=== PATIENT | male | born 1985 | race African-American/Black ===

== ENCOUNTER 2019-08-23 12:43 | Emergency (ER) | payer OTHER ==
[2019-08-24 16:40] LABS: SARS-CoV-2 MS2 Positive; SARS-CoV-2 N Gene Negative; SARS-CoV-2 S Gene Negative; SARS-CoV-2 orf1ab Negative
== END 2019-08-23 13:10 | disposition home or self-care (01) ==
LOC: ERS 12:43
DX: B34.9 Viral infection, unspecified (principal); Z20.828 Contact with and (suspected) exposure to other viral communicable diseases
CPT/HCPCS: 87635; 99284; U0003